=== PATIENT | female | born 1960 | race Asian ===

== ENCOUNTER 2021-04-08 07:34 | Emergency (ER) | payer OTHER ==
[~2021-04-08] VITALS: Ht 152.4 cm; Wt 41.7 kg
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
--- NOTE | 2021-04-08 09:00 | NUR ---
ANIBAL [place] TEL# [phone] WANTS AN UPDATE RE PT DC
[2021-04-08 09:47] VITALS: BP 120/82
[2021-04-08] MEDS ORDERED: HYDR-3980 PO (09:47)
== END 2021-04-08 09:59 | disposition home or self-care (01) ==
LOC: ER 08:11
DX: S70.02XA Contusion of left hip, initial encounter (principal); S80.01XA Contusion of right knee, initial encounter; Z79.899 Other long term (current) drug therapy; V49.59XA Passenger injured in collision with other motor vehicles in traffic accident, initial encounter; Y93.89 Activity, other specified; Y92.488 Other paved roadways as the place of occurrence of the external cause; Y99.8 Other external cause status
CPT/HCPCS: 72170-TC; 73552; 73564-TC